=== PATIENT | female | born 2000 | race Caucasian/White ===

== ENCOUNTER 2019-12-28 15:47 | Emergency (ER) | payer SELFPAY ==
[~2019-12-28] VITALS: Ht 172.7 cm; Wt 68.0 kg
[2019-12-28] MEDS ORDERED: BACITRACIN ZINC OINT UDPKT TOP ONE (23:00)
[2019-12-28 23:07] LABS: CLARITY URINE CLEAR (CLEAR); COLOR URINE YELLOW (YELLOW); KETONES URINE 3+ (NEGATIVE); LEUKOCYTE ESTERASE URINE TRACE (NEGATIVE); NITRITE URINE POSITIVE (NEGATIVE); OCCULT BLOOD URINE 1+ (NEGATIVE); PROTEIN URINE TRACE (NEGATIVE); SPECIFIC GRAVITY URINE 1.024 (1.005-1.030); UROBILINOGEN URINE 0.2 E.U./dL (0.2-1.0)
[2019-12-28 23:35] LABS: BASOPHILS % 0.4 % (0.0-2.0); EOSINOPHILS % 0.6 % (0.0-5.0); HEMATOCRIT. 35.8 % (36.0-48.0); HEMOGLOBIN. 12.4 g/dL (12.0-16.0); LYMPHOCYTES % 23.9 % (20.0-50.0); MEAN CORPUSCULAR HEMOGLOBIN 29.7 pg (28.0-32.0); MEAN CORPUSCULAR VOLUME 85.6 fL (81.0-99.0); MEAN PLATELET VOLUME 8.7 fl (7.4-10.4); MONOCYTES % 8.7 % (2.0-8.0); NEUTROPHILS % 66.4 % (40.0-76.0); PLATELET 199 x1000/uL (130-400); RED BLOOD CELL COUNT 4.19 mill/uL (4.2-5.4); RED CELL DISTRIBUTION WIDTH 13.5 % (11.6-14.6)
[2019-12-28 23:35] LABS: *BARBITURATES SCREEN URINE NEGATIVE (NEGATIVE); OPIATES URINE SCREEN NEGATIVE (NEGATIVE); PHENCYCLIDINE URINE SCREEN NEGATIVE (NEGATIVE)
[2019-12-28 23:38] LABS: *COCAINE SCREEN URINE NEGATIVE (NEGATIVE)
[2019-12-28 23:38] LABS: CHLORIDE 106 mEq/L (98-107)
[2019-12-28 23:39] LABS: *BENZODIAZEPINES SCREEN URINE NEGATIVE (NEGATIVE)
[2019-12-28 23:45] LABS: ETHANOL BLOOD < 10 mg/dL
[2019-12-29 00:33] LABS: *AMPHETAMINES SCREEN URINE PRESUMTIVE POSITIVE (NEGATIVE)
[2019-12-29 00:34] LABS: CANNABINOID URINE SCREEN PRESUMTIVE POSITIVE (NEGATIVE)
[2019-12-29] MEDS ORDERED: ACETAMINOPHEN 325MG TABLET PO ONE (01:00)
[2019-12-29] MEDS ORDERED: POTASSIUM CHLORIDE 20MEQ TABLET SR PO NR (01:00)
[2019-12-29] MEDS ORDERED: CEFTRIAXONE SODIUM 500 MG/VIAL IM NR (01:00)
[2019-12-29 15:37] LABS: METHADONE URINE SCREEN NEGATIVE (NEGATIVE)
[2019-12-30] MEDS: NITROFURANTOIN 100MG M/M CAPSULE PO SCH (17:04)
[2019-12-30 17:07] LABS: BASOPHILS % 0.7 % (0.0-2.0); EOSINOPHILS % 0.9 % (0.0-5.0); HEMATOCRIT. 39.4 % (36.0-48.0); HEMOGLOBIN. 13.7 g/dL (12.0-16.0); LYMPHOCYTES % 28.7 % (20.0-50.0); MEAN CORPUSCULAR HEMOGLOBIN 29.7 pg (28.0-32.0); MEAN CORPUSCULAR VOLUME 85.6 fL (81.0-99.0); MONOCYTES % 7.5 % (2.0-8.0); NEUTROPHILS % 62.2 % (40.0-76.0); PLATELET 216 x1000/uL (130-400); RED BLOOD CELL COUNT 4.61 mill/uL (4.2-5.4); RED CELL DISTRIBUTION WIDTH 13.5 % (11.6-14.6)
[2019-12-30 17:09] LABS: CHLORIDE 106 mEq/L (98-107)
[2019-12-30] MEDS ORDERED: POTASSIUM CHLORIDE 10MEQ TABLET SR PO ONE (20:45)
[2019-12-31] MEDS: NITROFURANTOIN 100MG M/M CAPSULE PO SCH (09:40)
[2019-12-31 15:50] VITALS: BP 96/60
== END 2019-12-31 16:02 ==
LOC: ER 15:47
DX: M79.89 Other specified soft tissue disorders (principal); R42 Dizziness and giddiness; F32.9 Major depressive disorder, single episode, unspecified; F14.10 Cocaine abuse, uncomplicated; F17.290 Nicotine dependence, other tobacco product, uncomplicated
CPT/HCPCS: 36415; 70450; 80053; 80305; 80320; 81003; 81025; 85025; 96372; 99285; J0696; G0480